=== PATIENT | male | born 1995 ===

== ENCOUNTER → 2024-01-28 | Outpatient (CLI) | payer SELFPAY | LOC: WSPT 11:14 | DX: S39.012D Strain of muscle, fascia and tendon of lower back, subsequent encounter (principal); X58.XXXD Exposure to other specified factors, subsequent encounter ==

== ENCOUNTER → 2024-02-04 | Outpatient (CLI) | payer SELFPAY | LOC: WSPT 10:40 | DX: S39.012D Strain of muscle, fascia and tendon of lower back, subsequent encounter (principal); X58.XXXD Exposure to other specified factors, subsequent encounter ==